=== PATIENT | female | born 1970 | race African-American/Black ===

== ENCOUNTER 2021-09-04 15:44 | Emergency (ER) | payer OTHER ==
[2021-09-04] MEDS ORDERED: NORCO 5-325 TA1 EACH PO (18:33)
== END 2021-09-04 18:44 | disposition home or self-care (01) ==
LOC: FER 15:44
DX: S42.401A Unspecified fracture of lower end of right humerus, initial encounter for closed fracture (principal); V49.40XA Driver injured in collision with unspecified motor vehicles in traffic accident, initial encounter
CPT/HCPCS: 73080; 96372; J1885

== ENCOUNTER → 2021-10-02 | Day surgery (SDC) | payer OTHER ==
[~2021-10-02] VITALS: Ht 157.5 cm; Wt 65.8 kg
[~2021-10-02] MED LIST: ADIPEX-P37.5 MG PO; NORCO 5-325 TA1 EACH PO; ZOMIG5 MG PO
== END | disposition home or self-care (01) ==
LOC: FAS 09-18 11:00
DX: Z12.11 Encounter for screening for malignant neoplasm of colon (principal); K57.30 Diverticulosis of large intestine without perforation or abscess without bleeding; M19.90 Unspecified osteoarthritis, unspecified site; Z79.899 Other long term (current) drug therapy; Z72.89 Other problems related to lifestyle
CPT/HCPCS: J2704; J7120